=== PATIENT | male | born 2000 | race Caucasian/White ===

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

== ENCOUNTER 2021-11-07 12:34 | Emergency (ER) | payer MEDICAID, SELFPAY ==
[2021-11-07 12:35] VITALS: BP 131/81; PULSE 108; RESP 16; TEMP 37.8; O2SAT 100; BMI 25.8
--- NOTE | 2021-11-07 14:07 | RAD_ITS ---
STUDY: XR Hand Min 3 Views REASON FOR EXAM: Male, 21 years old. Technologist Notes PATIENT STATES NO KNOWN INJURY. PAIN IN BOTH HANDS FOR ABOUT 3 DAYS. HX OF TREMORS PAIN TECHNIQUE: XR Hand Min 3 Views COMPARISON: None. FINDINGS: Normal radiocarpal articulation. Normal distal radioulnar joint. Normal visualized carpal bones. Normal carpal articulations Normal carpometacarpal articulation of the thumb. Normal second through fifth carpometacarpal joints. Normal metacarpi. Normal metacarpophalangeal joint of the thumb. Normal interphalangeal joint of the thumb. Normal proximal and distal phalanges of the thumb. Normal metacarpophalangeal joints of the second through fifth fingers. Normal proximal and distal interphalangeal joints of the second through fifth fingers. Normal phalanges of the second through fifth fingers. The soft tissue structures are unremarkable. RAD/Hand Min 3 Views IMPRESSION: There are no acute findings. Electronically Signed: Clayton Noe MD at 14:48 EST , Service support ,
--- NOTE | 2021-11-07 14:07 | EX.ED.UPPERE ---
HPI History of Present Illness Chief Complaint: Upper Extremity Injury Detail of Chief Complaint: Bilateral hand pain and fever Informant: patient Narrative Narrative: Patient presents to the emergency department with complaint of bilateral hand pain that has had for a while but worse over the last 2 days. 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 Patient complains of hard time picking up his son because of the discomfort in his hands. Patient also states that he has had a cough and upper respiratory infection for the last 3 days. He was noted to have a fever today. Patient states his girlfriend also was sick with same and she tested negative for Covid. Patient denies any trauma to his hands. He has not been vaccinated against Covid. PFSH PFSH Medical History no medical history Home Medications naproxen 500 mg PO BID #14 tab 11/07/21 [Rx Last Taken Unknown] Allergy/AdvReac Type Severity Reaction Status Date / Time No Known Allergies Allergy Verified 11/07/21 12:40 Surgical History no surgical history Social History Smoking Status: Current every day smoker tobacco type: cigarettes ROS ROS ED Constitutional Constitutional ED: Reports systems reviewed and no addt'l complaints, except as documented and fever(s); Denies body ache(s), change in weight or chills Eyes Eyes: Denies acute decrease in peripheral vision, change in vision, double vision or loss of vision ENT ENT ED: Reports none and sore throat; Denies ear pain, lip swelling, loss taste/smell, neck pain or otalgia Cardiovascular Cardiovascular: Reports none; Denies abdominal pain, chest pain with activity, leg edema, lightheadedness, palpitations, rapid heart rate or syncope Respiratory/Chest Respiratory/Chest: Reports none and cough; Denies change in mental status, dry cough, dyspnea, hemoptysis, shortness of breath at rest or shortness of breath with exertion Gastrointestinal Gastrointestinal: Reports none; Denies abdominal pain, change in stool character, diarrhea, hematemesis, hematochezia, melena, rectal bleeding or vomiting Genitourinary Genitourinary ED: Reports none; Denies abdominal discomfort, anuria, dysuria, genital pain or polyuria Musculoskeletal Musculoskeletal: Reports none and other Details: Bilateral hand pain ; Denies arthralgias, back pain, difficulty walking, extremity pain, muscle weakness or myalgias Integumentary Reports none; Denies abscess or rash Neurologic Neurologic: Reports none; Denies abnormal gait, confusion, focal weakness, frequent falls, headache(s), loss of vision, numbness, paresthesias, radicular pain, vertigo or weakness Psychiatric Psychiatric: Reports systems reviewed and no addt'l complaints, except as documented and none; Denies behavioral changes, confusion, difficulty concentrating, hallucinations, suicidal ideation, tactile hallucinations or visual hallucinations Endocrine Endocrinology: Denies none, cold intolerance, excessive sweating, fatigue or heat intolerance Hematologic/Lymphatic Hematologic/Lymphatic: Reports none; Denies anemia, easy bleeding or easy bruising Allergic/Immunologic Allergic/Immunologic ED: Denies as per HPI, none, lip swelling, mouth swelling, throat swelling, tongue swelling or hives EXAM Physical Exam Const Vital Signs: 11/07/21 12:35 Temperature 100.1 F H Temperature Source Temporal Pulse Rate 108 H Respiratory Rate 16 Blood Pressure 131/81 H Blood Pressure Mean 97 Pulse Ox 100 Oxygen Delivery Method Room Air Positive well nourished and well developed General Appearance ED: well developed and NAD HEENT Reports TM's clear and moist mucous membranes normocephalic and atraumatic; Negative for trauma or tenderness Tympanic Membrane ED: Yes TM's clear Eyes PERRL and EOMs intact bilaterally General Eye ED: Negative for pale conjunctiva or scleral icterus Neck no lymphadenopathy, supple and no JVD General: Negative for tenderness Chest Wall inspection of chest normal and palpation of chest normal Chest: Negative for tenderness Resp normal respiratory effort and clear to auscultation bilaterally Effort and Inspection: Negative for respiratory distress or pain with movement Auscultation: Negative for rhonchi, wheezes or diminished lung sounds Cardio regular rate, regular rhythm, S1 normal heart sound, S2 normal heart sound and no murmurs Peripheral Pulses: pulses 2+ throughout GI normal to inspection, nondistended, normoactive bowel sounds, soft to palpation, non-tender, non-distended and no masses Back/Spine no CVA tenderness and no thoracic nor lumbar tenderness Extremity Extremity Narrative: Patient has diffuse tenderness palpation over the metacarpals bilaterally. There is no soft tissue swelling noted. There is no ecchymosis or bruising. He has normal range of motion of all digits. He is neurovascular intact distally. General Extremety ED: Negative for edema General Extremity: Negative for edema Neuro oriented x3, CN's II-XII intact bilaterally, no sensory deficits noted and gait normal Sensorium / Orientation: awake, alert, oriented to person, oriented to place and oriented to time Motor Exam: strength 5/5 throughout and strength abnormal Psych mental status grossly normal Skin no rashes or lesions noted and no wounds MDM MDM MDM Narrative Medical decision making narrative: Patient had a negative Covid test as well as negative influenza screen. Bilateral hand x-rays were unremarkable. At this point I suspect likely viral URI and pain in hands likely from repetitive use. Patient does not want work restrictions but would like me to write him off for a couple of days to heal. Patient does not want to file this under Workmen's Comp. Patient will be given a prescription for naproxen. Lab Data Attestation: I reviewed the patient's lab results. Discharge Plan Triage Chief Complaint: Upper Extremity Injury ED Provider: Kyle Martinez Dx/Rx/DC Orders Clinical Impression: Viral URI, Bilateral hand pain Instructions: INA, ED Muscle Strain, Extremity, ED URI, Viral, No Abx (Adult) Prescriptions: New naproxen 500 MG tablet 500 mg PO BID Qty: 14 RF: 0 Primary Care Provider: Eva Zhang Referrals: Dharmesh Caraballo MD [NON-STAFF] - 5-7 Days Eva Zhang MD [Primary Care Provider] - Disposition Disposition: Home, Self Care
--- NOTE | 2021-11-07 14:25 | RAD_ITS ---
STUDY: X-RAY - RIGHT HAND REASON FOR EXAM: Male, 21 years old. PAIN TECHNIQUE: 3 view(s) of the hand. COMPARISON: None. FINDINGS: Normal radiocarpal articulation. Normal distal radioulnar joint. Normal visualized carpal bones. Normal carpal articulations Normal carpometacarpal articulation of the thumb. Normal second through fifth carpometacarpal joints. Normal metacarpi. Normal metacarpophalangeal joint of the thumb. Normal interphalangeal joint of the thumb. Normal proximal and distal phalanges of the thumb. Normal metacarpophalangeal joints of the second through fifth fingers. Normal proximal and distal interphalangeal joints of the second through fifth fingers. Normal phalanges of the second through fifth fingers. The soft tissue structures are unremarkable. RAD/Hand Min 3 Views IMPRESSION: Normal x-ray examination of the hand. Electronically Signed: Atul Moralez MD at 14:38 EST Tel , Service support ,
== END 2021-11-07 15:16 | disposition home or self-care (01) ==
PROVIDERS: Emergency Provider Emergency Medicine; PCP Pediatrics
DX: J06.9 Acute upper respiratory infection, unspecified (principal); M79.641 Pain in right hand; M79.642 Pain in left hand; F17.210 Nicotine dependence, cigarettes, uncomplicated
CPT/HCPCS: 73130; 87426; 87804; 99282

== ENCOUNTER 2025-09-05 20:17 | Emergency (ER) | payer MEDICAID, SELFPAY ==
[2025-09-05 20:18] VITALS: BP 116/63; PULSE 132; RESP 22; TEMP 37.4; O2SAT 98; BMI 26.6
--- NOTE | 2025-09-05 20:29 | EX.ED.DYSGE1 ---
HPI History of Present Illness Chief Complaint: General Illness Informant: patient Onset/Context/Timing Onset: Days Context: Gradual Onset Timing: Continuous Current Severity: Mild Maximum Severity: Mild Narrative Narrative: 36-year-old male no past medical or surgical history. States that he has had fever and chills with a cough and sore throat since Wednesday. Able to swallow. Prior tonsillectomy. Productive cough. No hemoptysis. No dysuria. No abdominal pain. No one else at home is sick. He is a roommate is not ill. Prior similar symptoms: Yes Recent Illness/Hospitalization: No PFSH PFSH Medical History no medical history Home Medications ?Medication ?Instructions ?Recorded ?Last Taken ?Type naproxen 500 mg tablet 500 mg PO BID #14 tabs 11/07/21 Unknown Rx Allergy/AdvReac Type Severity Reaction Status Date / Time No Known Allergies Allergy Verified 09/05/25 20:18 Social History Smoking Status: Current every day smoker tobacco type: cigarettes ROS ROS ED ROS Narrative Fever chills. Cough. Sore throat. Constitutional Constitutional ED: Reports chills, fever(s) and subjective Eyes Eyes: Denies blurry vision ENT ENT ED: Reports sore throat; Denies ear pain or rhinorrhea Cardiovascular Cardiovascular: Denies chest pain Respiratory/Chest Respiratory/Chest: Reports cough, dyspnea and sputum Gastrointestinal Gastrointestinal: Denies abdominal pain, constipation, diarrhea, melena, nausea or vomiting Genitourinary Genitourinary ED: Denies dysuria or hematuria Musculoskeletal Musculoskeletal: Denies arthralgias or back pain Integumentary Denies abscess Neurologic Neurologic: Denies paresthesias Psychiatric Psychiatric: Denies anxiety Endocrine Endocrinology: Denies cold intolerance Hematologic/Lymphatic Hematologic/Lymphatic: Reports none Allergic/Immunologic Allergic/Immunologic ED: Denies mouth swelling, tongue swelling or urticaria EXAM Physical Exam Narrative Exam Narrative: Well-appearing 25-year-old male. Vital signs stable he is tachycardic 132. Currently W993. Does not look septic toxic. No distress. Pulse ox 98% on room air no hypoxia. H EENT exam posterior pharynx erythematous. Status post tonsillectomy. No stridor. No drooling. Able to handle his own secretions. Mildly dry mucous membranes. TMs not visualized due to wax bilaterally. Neck nontender. No meningismus. No lymphadenopathy. Able to touch chin to chest. Trachea midline. Nontender. Lungs clear to auscultation bilaterally. Heart tachycardic 120 no murmur. Chest wall ribs nontender. Abdomen soft nontender. Moving all 4 extremities. Normal strength. Normal range of motion. Nontender no edema. No rash. Back nontender. No rash. Neurologically he is awake alert. Answering questions following commands. Benign exam. Const Vital Signs: 09/05/25 20:18 09/05/25 20:45 Temperature 99.3 F H Temperature Source Oral Pulse Rate 132 H Respiratory Rate 22 H Respiratory Effort Normal Non-Labored Respiratory Pattern Normal Blood Pressure 116/63 Blood Pressure Mean 80 Pulse Ox 98 Oxygen Delivery Method Room Air MDM MDM MDM Narrative Medical decision making narrative: 25-year-old suspect viral syndrome. Treated with Toradol for discomfort. Liter normal saline for mild dehydration. Screening labs and chest x-ray. Repeat exam at 9:32 PM patient doing well. He and I went over his test results. He is exam clinically looks better. He was treated with IV fluids. IV Toradol. To be discharged to home. Fluid and rest. Treat as viral syndrome. Currently has no physical signs of acute bacterial infection. History & Record Review Discussion w/independent historian: Patient Additional record(s) reviewed:: Prior outpatient record Lab Data Attestation: I reviewed the patient's lab results. Lab results narrative: CBC shows a white count of 13. H&H is 17 and 50. Platelets 212. Electrolytes show sodium 137. Gap 15. Normal BUN of 9 creatinine 1.1. Glucose 87. Chest x-ray unremarkable. Labs: Laboratory Results - last 24 hr 09/05/25 20:40 WBC 13.0 H RBC 6.06 Hgb 17.8 H Hct 50.5 MCV 83.3 MCH 29.4 MCHC 35.2 RDW Std Deviation 36.5 RDW Coeff of Inder 12.0 Plt Count 212 MPV 9.8 Immature Gran % (Auto) 0.400 Neut % (Auto) 80.2 H Lymph % (Auto) 9.3 L Petroleum % (Auto) 9.3 Eos % (Auto) 0.3 Baso % (Auto) 0.5 Absolute Neuts (auto) 10.4 H Absolute Lymphs (auto) 1.20 Nucleated RBC % 0 Sodium 137 Potassium 3.8 Chloride 100 Carbon Dioxide 22.3 Anion Gap 15 BUN 9 Creatinine 1.16 Estim Creat Clear Calc 101.39 Est GFR (MDRD) Non-Af 90 BUN/Creatinine Ratio 8.1 L Glucose 87 Calcium 9.5 Radiography Chest X-Ray - ED: Read by ED Physician, Read by Radiologist, Normal, Heart, Lungs, Mediastinum, Bony Structures and No Acute Disease Diagnostic Testing: Clinical Impression(s) from Imaging Studies Chest X-Ray 09/05/25 20:48 IMPRESSION: No acute pulmonary disease. Reading Location: [facility] [place] Chest x-ray, 2 views, AP and lateral, interpreted by myself and radiology shows normal cardiac silhouette. Normal lung shannon. No pneumonia. No acute abnormality. Discharge Plan Triage Chief Complaint: General Illness ED Provider: Bola Kahn Dx/Rx/DC Orders Clinical Impression: Viral syndrome Instructions: ED URI, Viral, No Abx (Adult) Prescriptions: No Action naproxen 500 MG tablet 500 mg PO BID Qty: 14 0RF Primary Care Provider: Care Physician,No Primary Referrals: Eva Zhang MD [Non-Staff, Pediatrics] - 1 Week if not improving Activity Restrictions/Additional Instructions: Plenty of fluids and rest. Motrin and Tylenol for fever and bodyaches Follow-up with your doctor if not improving or return to emergency department if not getting better. Your labs and chest x-ray look good. I suspect this to be a viral syndrome. Print Language: Citizen [place] Disposition Disposition: Home, Self Care
[2025-09-05] MEDS: Ketorolac 30 MG/ML Syringe IV (20:40)
[2025-09-05] MEDS: 0.9% Normal Saline (1000mL) 1,000 ML 1000 ML IV (20:40)
--- NOTE | 2025-09-05 20:48 | RAD_ITS ---
PROCEDURE: RAD/Chest PA and Lateral
[2025-09-05 20:58] LABS: Hematocrit 50.5 % (40-54); Hemoglobin 17.8 g/dL (13.0-16.5); Immature Granulocytes Count 0.050 X10^3/uL (0.0-0.0); Mean Corp Hgb Conc 35.2 g/dL (32-36); Mean Corpuscular Volume 83.3 fL (80-94); Mean Platelet Vol. 9.8 fl (6.2-12.0); NRBC Flagged by Analyzer 0 % (0-5); Platelet Count 212 K/mm3 (150-450); RBC Distribution Width CV 12.0 % (11.6-14.6); RBC Distribution Width SD 36.5 fl (35.1-43.9); Red Blood Count 6.06 M/mm3 (4.6-6.2); White Blood Count 13.0 K/mm3 (4.4-11.0)
[2025-09-05 21:19] LABS: Anion Gap 15 (5-15); BUN 9 mg/dL (4-19); BUN/Creat Ratio 8.1 RATIO (10-20); Calcium,Total 9.5 mg/dL (7.6-11.0); Carbon Dioxide 22.3 mmol/L (21.0-32.0); Chloride 100 mmol/L (98-108); Estimated Creatinine Clearance 101.39 ml/min (50-250); Glucose 87 mg/dL (70-99); Potassium 3.8 mmol/L (3.3-5.1)
[2025-09-05 21:39] VITALS: BP 124/62; PULSE 71; RESP 16; TEMP 36.7; O2SAT 100
== END 2025-09-05 21:44 | disposition home or self-care (01) ==
PROVIDERS: Emergency Provider Emergency Medicine; Visit Provider Emergency Medicine
DX: B34.9 Viral infection, unspecified (principal); E86.0 Dehydration; F17.210 Nicotine dependence, cigarettes, uncomplicated
CPT/HCPCS: 71046; 80048; 85025; 96361; 96374; 99283; A4216

== ENCOUNTER 2025-09-07 19:41 | Emergency (ER) | payer MEDICAID, SELFPAY ==
[2025-09-07 19:42] VITALS: BP 105/79; PULSE 115; RESP 18; TEMP 37.7; O2SAT 97; BMI 25.5
--- NOTE | 2025-09-07 20:02 | EKG12_ITS ---
Test Reason : PALPITATIONS
[2025-09-07] MEDS: 0.9% Normal Saline (1000mL) 1,000 ML 1000 ML IV (20:26)
--- NOTE | 2025-09-07 20:28 | EX.ED.DYSGE1 ---
HPI History of Present Illness Chief Complaint: Palpitations Narrative Narrative: Chief complaint and HPI: 25-year-old male with no significant past medical history presents for evaluation of palpitations during fever. Patient states for the past several days he has had URI symptoms with fever and cough. He was seen in our emergency department on 09/05/2025 and diagnosed with a viral illness. Patient states he has noticed palpitations when he develops a fever. States he has been taking Tylenol and ibuprofen intermittently. Last Tylenol was this morning. Last ibuprofen was around 1530. He denies any shortness of breath, chest pain, nausea, vomiting. Review of systems: See HPI Medications: As listed on the chart Allergies: As listed on the chart PFSH: Per chart Vital signs: As listed on the chart. Reviewed. Physical exam: Gen: A&O x3, NAD and nontoxic-appearing Head: Normocephalic, atraumatic Eyes: No sclera icterus, conjunctiva clear ENT: Moist mucous membranes Neck: Trachea midline, full range of motion CV: Tachycardic, regular rhythm, no murmurs Resp: Lungs CTA BL, no w/r/c GI: Abd soft, non-distended, non-tender, no r/r/g Musc: Full ROM, no deformity Skin: Warm, dry Neuro: Alert, oriented, grossly intact, sensation intact Psych: Cooperative, appropriate mood and affect [facility] Home Medications ?Medication ?Instructions ?Recorded ?Last Taken ?Type naproxen 500 mg tablet 500 mg PO BID #14 tabs 11/07/21 Unknown Rx Allergy/AdvReac Type Severity Reaction Status Date / Time No Known Allergies Allergy Verified 09/07/25 19:42 Social History Smoking Status: Current every day smoker tobacco type: cigarettes EXAM Physical Exam Const Vital Signs: 09/07/25 19:42 09/07/25 19:48 09/07/25 21:16 Temperature 100 F H Temperature Source Oral Pulse Rate 115 H 79 Respiratory Rate 18 20 H Respiratory Effort Normal Non-Labored Blood Pressure 105/79 113/78 Blood Pressure Mean 87 89 Pulse Ox 97 98 Oxygen Delivery Method Room Air Room Air MDM MDM MDM Narrative Medical decision making narrative: 25-year-old male with no significant past medical history presents for evaluation of palpitations during fever. Patient states for the past several days he has had URI symptoms with fever and cough. He was seen in our emergency department on 09/05/2025 and diagnosed with a viral illness. Patient states he has noticed palpitations when he develops a fever. States he has been taking Tylenol and ibuprofen intermittently. Last Tylenol was this morning. Last ibuprofen was around 1530. On presentation, patient no acute distress. He is tachycardic however he has an elevated temperature at 100 ?F. Tylenol and NS bolus ordered. On chart review patient was seen on 09/05/2025 for URI type symptoms. At that time he had basic labs performed that were relatively unremarkable except for mild leukocytosis. He had a chest x-ray that was negative for PE. Diagnosed with a viral syndrome. Given that patient feels the palpitations during elevated temperature/fever I suspect his palpitations are a normal physiological response to fever. However differential also includes electrolyte abnormality and thyroid disease. Suspect less likely arrhythmia. I do not think any repeat chest x-ray is needed at this time. Will get EKG to assess for arrhythmia as well as BMP, magnesium level, TSH. Patient in agreement. EKG was personally reviewed interpreted by me, ED physician. Heart rate 94. Normal sinus rhythm. No acute ischemic changes. BMP without significant electrolyte abnormality. No CARLOS. Magnesium unremarkable. TSH unremarkable. On reevaluation, patient's is no longer tachycardic. Not endorsing any palpitations. I suspect this is likely secondary to Tylenol and improving his fever. Patient's intermittent palpitations secondary to fever is a normal physiological response. I did explain this to the patient. Patient stable to discharge home. Follow-up with PCP for viral illness. Return precautions explained. He confirmed understand the plan. Patient able to discharge home. Impression: 1. Palpitation 2. Fever 3. Viral syndrome Lab Data Labs: Laboratory Results - last 24 hr 09/07/25 20:07 Sodium 135 Potassium 3.6 Chloride 100 Carbon Dioxide 22.9 Anion Gap 13 BUN 11 Creatinine 1.16 Estim Creat Clear Calc 101.39 Est GFR (MDRD) Non-Af 90 BUN/Creatinine Ratio 9.2 L Glucose 113 H Calcium 9.2 Magnesium 2.0 TSH 3.540 Discharge Plan Triage Chief Complaint: Palpitations ED Provider: Logan Silva Dx/Rx/DC Orders Clinical Impression: Palpitations, Viral syndrome Instructions: ED URI, Viral, No Abx (Adult) Prescriptions: No Action naproxen 500 MG tablet 500 mg PO BID Qty: 14 0RF Primary Care Provider: Care Physician,No Primary Referrals: Care Physician,No Primary [Primary Care Provider, Medical] Activity Restrictions/Additional Instructions: Tylenol and Motrin as needed for fever. You received Tylenol here in the emergency department. Follow-up with primary care physician. Print Language: Syriac Disposition Disposition: Home, Self Care Discharge Date/Time: 09/07/25 21:32
[2025-09-07 21:07] LABS: Anion Gap 13 (5-15); BUN 11 mg/dL (4-19); BUN/Creat Ratio 9.2 RATIO (10-20); Calcium,Total 9.2 mg/dL (7.6-11.0); Carbon Dioxide 22.9 mmol/L (21.0-32.0); Chloride 100 mmol/L (98-108); Estimated Creatinine Clearance 101.39 ml/min (50-250); Glucose 113 mg/dL (70-99); Magnesium 2.0 mg/dL (1.5-2.2); Potassium 3.6 mmol/L (3.3-5.1)
[2025-09-07 21:16] VITALS: BP 113/78; PULSE 79; RESP 20; O2SAT 98
== END 2025-09-07 21:32 | disposition home or self-care (01) ==
PROVIDERS: Emergency Provider Surgery; Visit Provider Surgery
DX: R00.2 Palpitations (principal); B34.9 Viral infection, unspecified; F17.210 Nicotine dependence, cigarettes, uncomplicated
CPT/HCPCS: 80048; 83735; 84443; 93005; 96360; 99284; A4216